=== PATIENT | male | born 1980 | race African-American/Black ===

== ENCOUNTER 2022-04-05 15:23 | Emergency (ER) | payer MEDICAID, OTHER ==
[~2022-04-05] VITALS: Ht 177.8 cm; Wt 82.0 kg
[2022-04-05] MEDS ORDERED: MORPHINE SULFATE 4 MG/ML CPJ (NOT FOR IM USE) IV STA (15:26)
[2022-04-05] MEDS ORDERED: ONDANSETRON HCL 4MG/2ML INJ IV STA (15:26)
[2022-04-05] MEDS ORDERED: SODIUM CHLORIDE 0.9% 1,000 ML IV ONE (15:30)
[2022-04-05] MEDS ORDERED: TETANUS, DIPHTHERIA, PERTUSSIS VAC/PF 0.5ML (>10YR OLD) IM ONE (15:30)
[2022-04-05 15:56] LABS: BASOPHILS % 0.7 % (0.0-2.0); EOSINOPHILS % 0.7 % (0.0-5.0); HEMATOCRIT. 47.6 % (42.0-52.0); HEMOGLOBIN. 15.9 g/dL (14.0-18.0); LYMPHOCYTES % 41.8 % (20.0-50.0); MEAN CORPUSCULAR HEMOGLOBIN 31.9 pg (28.0-32.0); MEAN CORPUSCULAR VOLUME 95.6 fL (80.0-94.0); MEAN PLATELET VOLUME 7.4 fl (7.4-10.4); MONOCYTES % 8.3 % (2.0-8.0); NEUTROPHILS % 48.5 % (40.0-76.0); PLATELET 263 x1000/uL (130-400); RED BLOOD CELL COUNT 4.97 mill/uL (4.7-6.1); RED CELL DISTRIBUTION WIDTH 14.4 % (11.6-14.6)
[2022-04-05 16:07] LABS: CHLORIDE 106 mEq/L (98-107)
[2022-04-05] MEDS ORDERED: IOHEXOL-350 100 ML BOTTLE ONE (16:20)
[2022-04-05] MEDS ORDERED: POTASSIUM CHLORIDE 20MEQ TABLET SR PO ONE (16:45)
[2022-04-05] MEDS ORDERED: IBUP-2028 MT (17:51)
[2022-04-05] MEDS ORDERED: HYDR-4001 MT (17:51)
[2022-04-05] MEDS ORDERED: MORPHINE SULFATE 4 MG/ML CPJ (NOT FOR IM USE) IV ONE (18:00)
[2022-04-05 18:35] VITALS: BP 150/97
== END 2022-04-05 18:45 | disposition home or self-care (01) ==
LOC: ER 15:23
DX: S71.132A Puncture wound without foreign body, left thigh, initial encounter (principal); S71.131A Puncture wound without foreign body, right thigh, initial encounter; W34.09XA Accidental discharge from other specified firearms, initial encounter; Y93.89 Activity, other specified; Y92.89 Other specified places as the place of occurrence of the external cause; Y99.8 Other external cause status; J45.909 Unspecified asthma, uncomplicated
CPT/HCPCS: 36415; 71045; 75635; 80053; 85025; 90471; 90715; 93005; 96361; 96374; 96375; 96376; 99285; J2270; J2405; J7030; Q9967; Z7610

== ENCOUNTER 2022-07-07 18:08 | Emergency (ER) | payer OTHER ==
[~2022-07-07] VITALS: Ht 180.3 cm; Wt 77.8 kg
[~2022-07-07 18:08] MED LIST: HYDR-4001 MT; IBUP-2028 MT
[2022-07-07 18:11] VITALS: BP 128/83
[2022-07-07] MEDS ORDERED: IBUPROFEN 400MG TABLET PO ONE (21:15)
[2022-07-07] MEDS ORDERED: ACETAMINOPHEN 325MG TABLET PO ONE (21:15)
[2022-07-07] MEDS ORDERED: IBUPROFEN 400MG TABLET PO NR (23:00)
[2022-07-07] MEDS ORDERED: ACETAMINOPHEN 325MG TABLET PO NR (23:00)
[2022-07-07] MEDS ORDERED: KETOROLAC 60MG/2ML VIAL IM ONE (23:15)
[2022-07-07] MEDS ORDERED: IBUP-2028 MT (23:50)
== END 2022-07-08 00:15 | disposition home or self-care (01) ==
LOC: ER 18:08
DX: M25.562 Pain in left knee (principal); Z87.828 Personal history of other (healed) physical injury and trauma; Z98.890 Other specified postprocedural states
CPT/HCPCS: 73562; 96372; 99284; J1885; L1830; Z7610

== ENCOUNTER 2023-05-27 14:10 | Emergency (ER) | payer OTHER ==
[~2023-05-27] VITALS: Ht 177.8 cm; Wt 76.0 kg
[2023-05-27 14:12] VITALS: O2SAT 95
[2023-05-27] MEDS ORDERED: MORPHINE SULFATE 4 MG/ML CPJ (NOT FOR IM USE) IV STA (14:12)
[2023-05-27] MEDS ORDERED: SODIUM CHLORIDE 0.9% 1,000 ML IV ONE (14:15)
[2023-05-27] MEDS ORDERED: CEFAZOLIN 1000MG PREMIX 50 ML IV ONE (14:15)
[2023-05-27] MEDS ORDERED: TETANUS, DIPHTHERIA, PERTUSSIS VAC/PF 0.5ML (>10YR OLD) IM ONE (14:15)
[2023-05-27 14:32] LABS: BASOPHILS % 0.3 % (0.0-2.0); EOSINOPHILS % 0.5 % (0.0-5.0); HEMATOCRIT. 45.2 % (42.0-52.0); HEMOGLOBIN. 15.4 g/dL (14.0-18.0); LYMPHOCYTES % 29.5 % (20.0-50.0); MEAN CORPUSCULAR HEMOGLOBIN 32.5 pg (28.0-32.0); MEAN CORPUSCULAR HGB CONC 34.1 g/dL (31.0-37.0); MEAN CORPUSCULAR VOLUME 95.4 fL (80.0-94.0); MEAN PLATELET VOLUME 7.3 fl (7.4-10.4); NEUTROPHILS % 61.7 % (40.0-76.0); PLATELET 255 x1000/uL (130-400); RED BLOOD CELL COUNT 4.74 mill/uL (4.7-6.1); RED CELL DISTRIBUTION WIDTH 14.3 % (11.6-14.6); WHITE BLOOD COUNT 11.3 x1000/uL (4.5-11.0)
[2023-05-27 14:40] LABS: CHLORIDE 110 mEq/L (98-107); INDEX HEMOLYSI 1 (1-3); INDEX ICTERIC 1 (1-4); INDEX LIPEMIC 1 (1-3); POTASSIUM 3.1 mEq/L (3.5-5.1); SODIUM 143 mEq/L (136-145)
[2023-05-27 14:45] LABS: INR 0.9; PARTIAL THROMBOPLASTIN TIME 21.7 sec (23.4-31.0); PROTHROMBIN TIME 9.8 sec (9.6-11.0)
[2023-05-27 14:48] LABS: ALANINE AMINOTRANSFERASE 54 IU/L (13-61); ALBUMIN 4.1 g/dL (3.4-5.0); ASPARTATE AMINOTRANSFERASE 79 IU/L (15-37); BILIRUBIN TOTAL 0.7 mg/dL (0.1-1.0); CALCIUM 9.2 mg/dL (8.5-10.1); CARBON DIOXIDE 24 mEq/L (21-32); CREATININE 1.3 mg/dL (0.6-1.3); GLUCOSE 160 mg/dL (70-105); UREA NITROGEN BLOOD 13 mg/dL (7-21)
[2023-05-27 16:15] VITALS: BP 133/83; PULSE 100; RESP 18; TEMP 98.3
[2023-05-27] MEDS ORDERED: T3 PO (16:19)
[2023-05-27] MEDS ORDERED: IBUP-2029 MT (16:19)
== END 2023-05-27 17:46 | disposition home or self-care (01) ==
LOC: ER 14:10
DX: S71.112A Laceration without foreign body, left thigh, initial encounter (principal); W34.00XA Accidental discharge from unspecified firearms or gun, initial encounter; Y93.89 Activity, other specified; Y92.89 Other specified places as the place of occurrence of the external cause; Y99.8 Other external cause status
CPT/HCPCS: 80053; 85025; 85610; 85730; 86850; 86900; 86901; 36415; 73552; 72191; 73706; 90715; 12002; 90471; 96361; 96365; 96375; 99285; J0690; J2270; J7030; Z7610